=== PATIENT | male | born 1970 | race Caucasian/White ===

== ENCOUNTER 2021-01-30 18:01 | Observation (INO) ==
[2021-01-30] MEDS ORDERED: Perflutren Lipid Microsphere 1.3 ML in 0.9 % Sodium Chloride 8.7 ML IVP PRN (21:32)
[2021-01-30] MEDS ORDERED: Nitroglycerin 0.4 MG TAB.SUBL SL PRN (21:37)
[2021-01-30] MEDS ORDERED: Ondansetron 4 MG/2 ML VIAL IVP PRN (21:38)
[2021-01-30] MEDS ORDERED: Acetaminophen 325 MG TABLET PO PRN (21:38)
[2021-01-30] MEDS ORDERED: Naloxone 0.4 MG/ML INJ IVP PRN (21:38)
[2021-01-30] MEDS ORDERED: 0.9 % Sodium Chloride 1,000 ML IVC SCH (22:00)
[2021-01-31] MEDS ORDERED: D5% in Water 1,000 ML IVC PRN (05:31)
[2021-01-31] MEDS ORDERED: Dextrose Gel 15 GM/37.5 ML TUBE PO PRN ×2 (05:31)
[2021-01-31] MEDS ORDERED: *HR* Dextrose 50 % in Water (Vial) 50 ML VIAL IVP PRN (05:31)
[2021-01-31 05:55] LABS: Hematocrit 35.1 % (37.5-50.1); Hemoglobin 10.3 g/dL (12.9-16.9); Mean Corpuscular HGB Conc 29.3 g/dL (31.6-35.5); Mean Corpuscular Hemoglobin 23.1 pg (28.0-33.3); Mean Corpuscular Volume 78.9 fL (83.0-100.0); Platelet Count 243 K/mcL (140-400); Red Blood Count 4.45 M/mcL (4.19-5.50); Red Cell Distribution Width 17.6 % (11.5-14.5); White Blood Count 5.5 K/mcL (4.3-11.1)
[2021-01-31] MEDS ORDERED: Regadenoson 0.4 MG/5 ML SYRINGE IVP ONE (06:13)
[2021-01-31 06:19] LABS: % Iron Saturation 18 % (20-55); Iron 79 mcg/dL (65-175); Transferrin 309 mg/dL (203-362)
[2021-01-31 06:20] LABS: BUN/Creatinine Ratio 25 (6-26); Blood Urea Nitrogen 22 mg/dL (6-20); Calcium 9.8 mg/dL (8.6-10.3); Carbon Dioxide 24 mEq/L (23-29); Chloride 105 mEq/L (98-107); Chol/HDL Ratio 2.6 (0-4.9); Cholesterol 124 mg/dL (< 200); Glucose 70 mg/dL (70-105); HDL Cholesterol 47 mg/dL (40-59); LDL Cholesterol,Calculated 67 mg/dL (< 100); Osmolality,Calculated 288 (280-300); Potassium 3.8 mEq/L (3.5-5.1); Sodium 138 mEq/L (136-145); Triglycerides 49 mg/dL (< 150); Troponin I < 0.03 ng/mL (< 0.04); eGFR For African Americans > 60 (> 60); eGFR For Non-African Americans > 60 (> 60)
[2021-01-31 06:21] LABS: INR 1.1; Prothrombin Time 13.2 Seconds (9.4-12.1)
[2021-01-31 06:24] LABS: Activated Partial Thrombo Time 38.4 Seconds (26.0-36.0)
[2021-01-31 06:35] LABS: Ferritin 15 ng/mL (20-250)
[2021-01-31 06:39] LABS: Folate 12.7 ng/mL (3.0-16.0)
[2021-01-31] MEDS ORDERED: Isovue-370 500 ML BOTTLE IVP ONE (09:05)
[2021-01-31] MEDS ORDERED: *HR* Metoprolol 5 MG/5 ML VIAL IVP PRN (09:05)
[2021-01-31 10:24] LABS: Estimated Average Glucose 108 mg/dl; Hemoglobin A1C 5.4 %
[2021-01-31] MEDS: Aspirin Enteric Coated 81 MG Tablet PO SCH (10:33)
[2021-01-31] MEDS: *HR* Heparin 5,000 UNIT/ML VIAL SQ SCH (18:11)
[2021-01-31] MEDS: Cyanocobalamin (B-12) 1,000 MCG TABLET PO SCH (18:12)
[2021-01-31] MEDS: NALOXONE HCL SL SCH (20:12)
[2021-01-31] MEDS: BUPRENORPHINE HCL SL SCH (20:12)
[2021-02-01 05:43] LABS: Basophils % 0.4 %; Immature Granulocytes % 0.3 % (0-4); Mean Corpuscular Volume 78.9 fL (83.0-100.0)
[2021-02-01] MEDS: *HR* Heparin 5,000 UNIT/ML VIAL SQ SCH ×2 (05:43→17:08)
[2021-02-01 05:44] LABS: Eosinophils # 0.1 K/mcL (0.0-0.6); Eosinophils % 1.9 %; Hematocrit 32.9 % (37.5-50.1); Hemoglobin 9.9 g/dL (12.9-16.9); Lymphocytes # 2.8 K/mcL (0.6-4.6); Lymphocytes % 41.2 %; Mean Corpuscular HGB Conc 30.1 g/dL (31.6-35.5); Mean Corpuscular Hemoglobin 23.7 pg (28.0-33.3); Mean Platelet Volume 9.6 fL (9.4-12.4); Monocytes # 0.5 K/mcL (0.0-1.3); Monocytes % 7.6 %; Neutrophils # 3.3 K/mcL (1.6-8.9); Platelet Count 269 K/mcL (140-400); Red Blood Count 4.17 M/mcL (4.19-5.50); Red Cell Distribution Width 17.9 % (11.5-14.5); Segmented Neutrophils % 48.6 %; White Blood Count 6.8 K/mcL (4.3-11.1)
[2021-02-01 06:25] LABS: Hypochromasia Present (Not Present); Platelet Estimate Normal (Normal)
[2021-02-01] MEDS: Aspirin Enteric Coated 81 MG Tablet PO SCH (08:43)
[2021-02-01] MEDS: BUPRENORPHINE HCL SL SCH (08:44)
[2021-02-01] MEDS: NALOXONE HCL SL SCH (08:44)
[2021-02-01] MEDS: Cyanocobalamin (B-12) 1,000 MCG TABLET PO SCH (08:45)
[2021-02-01] MEDS: *HR* Buprenorphine HCl 8 MG TAB.SUBL SL SCH ×2 (11:51→20:43)
[2021-02-01] MEDS ORDERED: ISOVUE-370 200 ML INFUS..BTL ONE (12:55)
[2021-02-01] MEDS ORDERED: *HR* Heparin 10,000 UNIT/10 ML VIAL ONE (12:55)
[2021-02-01] MEDS ORDERED: Heparin 1,000 UNITS/500 mL 500 ML ONE (12:55)
[2021-02-01] MEDS ORDERED: 0.9 % Sodium Chloride 1,000 ML ONE ×2 (12:55→13:21)
[2021-02-01] MEDS ORDERED: Nitroglycerin 1,000 MCG/5 ML VIAL IV ONE (12:56)
[2021-02-01] MEDS: Isosorbide MONOnitrate (24 HR) 30 MG TAB.ER.24H PO SCH (15:18)
[2021-02-02] MEDS: *HR* Heparin 5,000 UNIT/ML VIAL SQ SCH (06:13)
[2021-02-02] MEDS ORDERED: lisinopriL 5 MG TABLET PO SCH (09:00)
[2021-02-02] MEDS: Cyanocobalamin (B-12) 1,000 MCG TABLET PO SCH (09:25)
[2021-02-02] MEDS: Aspirin Enteric Coated 81 MG Tablet PO SCH (09:25)
[2021-02-02] MEDS: Isosorbide MONOnitrate (24 HR) 30 MG TAB.ER.24H PO SCH (09:25)
[2021-02-02] MEDS: *HR* Buprenorphine HCl 8 MG TAB.SUBL SL SCH (09:25)
[2021-02-02 10:54] VITALS: BP 166/85
== END 2021-02-02 15:52 | disposition home or self-care (01) ==
LOC: 3ANU → SUATTDRO 19:45
PROVIDERS: ADMIT General Practice; ATTEND Internal Medicine